=== PATIENT | male | born 1960 | race Caucasian/White ===

== ENCOUNTER 2019-03-20 01:27 | Inpatient (IN) | payer BC ==
[2019-03-20] MEDS ORDERED: Lactated Ringers 1,000 ML IV SCH ×2 (02:00→03:45)
[2019-03-20] MEDS ORDERED: Ibuprofen 600 MG Tab PO ONE (02:02)
[2019-03-20] MEDS ORDERED: Sodium Chloride 0.9% 10 ML Syringe FLUSH PRN ×2 (02:06→02:11)
[2019-03-20] MEDS ORDERED: Piperacillin/Tazobactam 4.5 GM in Sodium Chloride 0.9% 100 ML IV ONE (02:07)
--- NOTE | 2019-03-20 02:11 | EDM.PDOC ---
ED HPI GENERAL MEDICAL PROBLEM - General Chief Complaint: Fever Stated Complaint: HIGH FEVER/CONFUSION Time Seen by Provider: 03/20/19 01:54 Source of Information: Reports: Patient, Family, RN Notes Reviewed History Limitations: Reports: Altered Mental Status - History of Present Illness INITIAL COMMENTS - FREE TEXT/NARRATIVE: 59-year-old gentleman presents emergency department today complaint of fever and confusion. Gentleman is from [place] he's been here visiting over the last 24 hours she's become more confused has had difficulty with ambulation and balance has developed a fever which does respond to Tylenol. Does have a history of pituitary tumor as well as diabetes insipidus. At this time complains of headache and has difficulty finding words appears to be confused but does follow commands Treatments FINAL CIGAR AND BOX EXAMINER: Reports: Acetaminophen, Other (see below) Other Treatments FINAL CIGAR AND BOX EXAMINER: 8pm tylenol headache Pain Score (Numeric/FACES): 8 - Related Data Allergies Allergy/AdvReac Type Severity Reaction Status Date / Time No Known Allergies Allergy Verified 03/20/19 01:47 Home Meds: Home Meds Desmopressin [Desmopressin 0.1% Nasal [place]] 500 mcg INH DAILY 03/20/19 [History ] Docusate Sodium 100 mg PO DAILY 03/20/19 [History] Finasteride [Proscar] 5 mg PO DAILY 03/20/19 [History] Hydrocortisone [Cortef] 5 mg PO PCDINNER 03/20/19 [History] Hydrocortisone [Cortef] 12.5 mg PO PCBREAKFAST 03/20/19 [History] Levothyroxine 112 mcg PO ACBREAKFAST 03/20/19 [History] Melatonin/Herbal Complex #184 [Melatonin + l-Theanine Softgel] 3 mg PO BEDTIME 03/20/19 [History] Nebivolol HCl [Bystolic] 2.5 mg PO DAILY 03/20/19 [History] Ramipril [Altace] 10 mg PO DAILY 03/20/19 [History] Rosuvastatin [Crestor] 20 mg PO BEDTIME 03/20/19 [History] Tamsulosin HCl [Flomax] 0.4 mg PO BEDTIME 03/20/19 [History] Testosterone 75 gm TOP DAILY 03/20/19 [History] Zolpidem Tartrate [Ambien] 5 mg PO BEDTIME 03/20/19 [History] Past Medical History Endocrine/Metabolic History: Reports: Other (See Below) (Diabetes insipidus) Social & Family History - Tobacco Use Smoking Status *Q: Never Smoker ED ROS GENERAL - Review of Systems Review Of Systems: See Below Constitutional: Reports: Fever, Chills, Weakness, Fatigue, Other (Cold-like symptoms) HEENT: Reports: No Symptoms Respiratory: Reports: No Symptoms, Cough Cardiovascular: Reports: No Symptoms GI/Abdominal: Reports: No Symptoms : Reports: No Symptoms Musculoskeletal: Reports: No Symptoms Skin: Reports: No Symptoms Neurological: Reports: Confusion ED EXAM, SEPSIS - Physical Exam Exam: See Below Text/Narrative:: General: Male, ill-appearing, alert GCS 15 but confused difficulty finding words difficulty completing sentences HEENT: head is atraumatic normocephalic, eyes pupils equal round reactive to light, sclera clear no conjunctivitis appreciated. Ears tympanic membranes clear and eduardo landmarks and light reflex are present bilaterally canals are clear. Nose no septal deviation, nares are clear, no blood present. Mouth mucosa is moist and pink no erythema or exudate noted in soft palate, tongue is midline uvula is midline, dentition is intact. Neck: Supple no thyromegaly no tracheal deviation. Nodes: Cervical nodes subclavicular nodes nontender no palpable lymphadenopathy noted. Lungs: clear to auscultation bilaterally with symmetrical respirations, no adventitious noise appreciated. CV: Regular rate and rhythm S1 and S2 appreciated no murmurs rubs or gallops noted. Abdomen: Soft, nontender, no palpable masses or organomegaly appreciated, no distention no guarding bowel sounds are present, . Neuro: Cranial nerves II through XII grossly intact Skin: Warm and dry, intact Extremities: No lower extremity edema appreciated, pedal pulse is +2. He places his chin on his chest this does not increase his headache pain Course - Vital Signs Last Recorded V/S: Last Vital Signs Temp 99.5 F 03/20/19 04:51 Pulse 87 03/20/19 04:51 Resp 20 03/20/19 04:51 BP 124/77 03/20/19 04:51 Pulse Ox 91 L 03/20/19 04:51 - Orders/Labs/Meds Orders: Active Orders 24 hr Category Date Time Status Peripheral IV Care [RC] . DIRECTED Care 03/20/19 02:06 Active Peripheral IV Care [RC] . DIRECTED Care 03/20/19 02:12 Active Vital Signs [RC] Q1H Care 03/20/19 02:00 Active CULTURE BLOOD [BC] Urgent Lab 03/20/19 01:45 Received CULTURE BLOOD [BC] Urgent Lab 03/20/19 02:00 Received Lactated Ringers [Ringers, Lactated] 1,000 ml Med 03/20/19 02:00 Active IV ASDIRECTED Lactated Ringers [Ringers, Lactated] 1,000 ml Med 03/20/19 03:45 Active IV ASDIRECTED Sodium Chloride 0.9% [Saline Flush] Med 03/20/19 02:06 Active 10 ml FLUSH ASDIRECTED PRN Sodium Chloride 0.9% [Saline Flush] Med 03/20/19 02:11 Active 10 ml FLUSH ASDIRECTED PRN Blood Culture x2 Reflex Set [OM.PC] Urgent Oth 03/20/19 02:00 Ordered Peripheral IV Insertion Adult [OM.PC] Routine Oth 03/20/19 02:11 Ordered Peripheral IV Insertion Adult [OM.PC] Urgent Oth 03/20/19 02:06 Ordered Medication Orders Lactated Ringer's (Ringers, Lactated) 1,000 mls @ 999 mls/hr IV ASDIRECTED [facility] Last Admin: 03/20/19 02:13 Dose: 999 mls/hr Lactated Ringer's (Ringers, Lactated) 1,000 mls @ 999 mls/hr IV ASDIRECTED SUNDAR Last Admin: 03/20/19 03:42 Dose: 999 mls/hr Sodium Chloride (Saline Flush) 10 ml FLUSH ASDIRECTED PRN PRN Reason: Keep Vein Open Last Admin: 03/20/19 02:14 Dose: 10 ml Sodium Chloride (Saline Flush) 10 ml FLUSH ASDIRECTED PRN PRN Reason: Keep Vein Open Last Admin: 03/20/19 02:35 Dose: 10 ml Labs: Laboratory Tests 03/20/19 03/20/19 03/20/19 Range/Units 02:00 02:00 02:00 WBC 4.8 (4.5-11.0) K/uL RBC 5.60 (4.30-5.90) M/uL Hgb 15.5 H (12.0-15.0) g/dL Hct 46.3 (40.0-54.0) % MCV 83 (80-98) fL MCH 28 (27-31) pg MCHC 34 (32-36) % Plt Count 112 L (150-400) K/uL Neut % (Auto) 46 (36-66) % Lymph % (Auto) 32 (24-44) % [place] % (Auto) 21 H (2-6) % Eos % (Auto) 0 L (2-4) % Baso % (Auto) 1 (0-1) % Sodium 134 L (140-148) mmol/L Potassium 4.4 (3.6-5.2) mmol/L Chloride 98 L (100-108) mmol/L Carbon Dioxide 25 (21-32) mmol/L Anion Gap 15.4 H (5.0-14.0) mmol/L BUN 21 H (7-18) mg/dL Creatinine 1.8 H (0.8-1.3) mg/dL Est Cr Clr Drug Dosing 40.29 mL/min Estimated GFR (MDRD) 39 L (>60) Glucose 94 (74-106) mg/dL Lactic Acid 1.4 (0.4-2.0) mmol/L Calcium 9.2 (8.5-10.1) mg/dL Total Bilirubin 0.9 (0.2-1.0) mg/dL AST 37 (15-37) U/L ALT 50 (12-78) U/L Alkaline Phosphatase 53 (46-116) U/L C-Reactive Protein 9.46 H (0.0-0.3) mg/dL Total Protein 6.8 (6.4-8.2) g/dL Albumin 3.9 (3.4-5.0) g/dL Globulin 2.9 (2.3-3.5) g/dL Albumin/Globulin Ratio 1.3 (1.2-2.2) Procalcitonin ng/mL Urine Color Urine Appearance Urine pH (4.5-8.0) Ur Specific [place] (1.008-1.030) Urine Protein (NEGATIVE) mg/dL Urine Glucose (UA) (NEGATIVE) mg/dL Urine Ketones (NEGATIVE) mg/dL Urine Occult Blood (NEGATIVE) Urine Nitrite (NEGAITVE) Urine Bilirubin (NEGATIVE) Urine Urobilinogen (NORMAL) mg/dL Ur Leukocyte Esterase (NEGATIVE) Urine RBC (0-5) Urine WBC (0-5) Ur Epithelial Cells Amorphous Sediment Urine Bacteria Urine Mucus 03/20/19 03/20/19 Range/Units 02:00 04:05 WBC (4.5-11.0) K/uL RBC (4.30-5.90) M/uL Hgb (12.0-15.0) g/dL Hct (40.0-54.0) % MCV (80-98) fL MCH (27-31) pg MCHC (32-36) % Plt Count (150-400) K/uL Neut % (Auto) (36-66) % Lymph % (Auto) (24-44) % [place] % (Auto) (2-6) % Eos % (Auto) (2-4) % Baso % (Auto) (0-1) % Sodium (140-148) mmol/L Potassium (3.6-5.2) mmol/L Chloride (100-108) mmol/L Carbon Dioxide (21-32) mmol/L Anion Gap (5.0-14.0) mmol/L BUN (7-18) mg/dL Creatinine (0.8-1.3) mg/dL Est Cr Clr Drug Dosing mL/min Estimated GFR (MDRD) (>60) Glucose (74-106) mg/dL Lactic Acid (0.4-2.0) mmol/L Calcium (8.5-10.1) mg/dL Total Bilirubin (0.2-1.0) mg/dL AST (15-37) U/L ALT (12-78) U/L Alkaline Phosphatase (46-116) U/L C-Reactive Protein (0.0-0.3) mg/dL Total Protein (6.4-8.2) g/dL Albumin (3.4-5.0) g/dL Globulin (2.3-3.5) g/dL Albumin/Globulin Ratio (1.2-2.2) Procalcitonin 0.18 ng/mL Urine Color Yellow Urine Appearance Clear Urine pH 5.0 (4.5-8.0) Ur Specific [place] 1.010 (1.008-1.030) Urine Protein Negative (NEGATIVE) mg/dL Urine Glucose (UA) Normal (NEGATIVE) mg/dL Urine Ketones Negative (NEGATIVE) mg/dL Urine Occult Blood Negative (NEGATIVE) Urine Nitrite Negative (NEGAITVE) Urine Bilirubin Negative (NEGATIVE) Urine Urobilinogen Normal (NORMAL) mg/dL Ur Leukocyte Esterase Negative (NEGATIVE) Urine RBC 0-5 (0-5) Urine WBC 0-5 (0-5) Ur Epithelial Cells Not seen Amorphous Sediment Few Urine Bacteria Not seen Urine Mucus Not seen Meds: Medications Generic Name Dose Route Start Last Admin Trade Name Freq PRN Reason Stop Dose Admin Lactated Ringer's 1,000 mls @ 999 mls/hr 03/20/19 02:00 03/20/19 02:13 Ringers, Lactated IV 999 mls/hr ASDIRECTED SUNDAR Administration Lactated Ringer's 1,000 mls @ 999 mls/hr 03/20/19 03:45 03/20/19 03:42 Ringers, Lactated IV 999 mls/hr ASDIRECTED SUNDAR Administration Sodium Chloride 10 ml 03/20/19 02:06 03/20/19 02:14 Saline Flush FLUSH 10 ml ASDIRECTED PRN Administration Keep Vein Open Sodium Chloride 10 ml 03/20/19 02:11 03/20/19 02:35 Saline Flush FLUSH 10 ml ASDIRECTED PRN Administration Keep Vein Open Discontinued Medications Generic Name Dose Route Start Last Admin Trade Name Freq PRN Reason Stop Dose Admin Fentanyl 50 mcg 03/20/19 04:49 03/20/19 04:57 Sublimaze IVPUSH 03/20/19 04:50 50 mcg ONETIME ONE Administration Piperacillin Sod/Tazobactam 100 mls @ 200 mls/hr 03/20/19 02:00 03/20/19 03: 14 Sod 4.5 gm/ Sodium Chloride IV Not Given Q6H SUNDAR Piperacillin Sod/Tazobactam 100 mls @ 100 mls/hr 03/20/19 02:07 03/20/19 02: 40 Sod 4.5 gm/ Sodium Chloride IV 03/20/19 03:06 100 mls/hr ONETIME ONE Administration Ibuprofen 600 mg 03/20/19 02:02 03/20/19 02:08 Motrin PO 03/20/19 02:03 600 mg ONETIME ONE Administration Ondansetron HCl 4 mg 03/20/19 02:28 03/20/19 02:33 Zofran IVPUSH 03/20/19 02:29 4 mg ONETIME ONE Administration Departure - Departure Time of Disposition: 05:28 Disposition: Refer to Observation Condition: Fair Clinical Impression: Community acquired pneumonia Qualifiers: Laterality: left Lung location: lower lobe of lung Qualified Code(s): J18.1 - Lobar pneumonia, unspecified organism - Discharge Information Referrals: PCP,None [Primary Care Provider] - Forms: ED Department Discharge - My Orders Last 24 Hours: My Active Orders 03/20/19 01:45 CULTURE BLOOD [BC] Urgent 03/20/19 02:00 Vital Signs [RC] Q1H CULTURE BLOOD [BC] Urgent Lactated Ringers [Ringers, Lactated] 1,000 ml IV ASDIRECTED Blood Culture x2 Reflex Set [OM.PC] Urgent 03/20/19 02:06 Peripheral IV Care [RC] . DIRECTED Sodium Chloride 0.9% [Saline Flush] 10 ml FLUSH ASDIRECTED PRN Peripheral IV Insertion Adult [OM.PC] Urgent 03/20/19 02:11 Sodium Chloride 0.9% [Saline Flush] 10 ml FLUSH ASDIRECTED PRN Peripheral IV Insertion Adult [OM.PC] Routine 03/20/19 02:12 Peripheral IV Care [RC] . DIRECTED 03/20/19 03:45 Lactated Ringers [Ringers, Lactated] 1,000 ml IV ASDIRECTED - Assessment/Plan Last 24 Hours: My Active Orders 03/20/19 01:45 CULTURE BLOOD [BC] Urgent 03/20/19 02:00 Vital Signs [RC] Q1H CULTURE BLOOD [BC] Urgent Lactated Ringers [Ringers, Lactated] 1,000 ml IV ASDIRECTED Blood Culture x2 Reflex Set [OM.PC] Urgent 03/20/19 02:06 Peripheral IV Care [RC] . DIRECTED Sodium Chloride 0.9% [Saline Flush] 10 ml FLUSH ASDIRECTED PRN Peripheral IV Insertion Adult [OM.PC] Urgent 03/20/19 02:11 Sodium Chloride 0.9% [Saline Flush] 10 ml FLUSH ASDIRECTED PRN Peripheral IV Insertion Adult [OM.PC] Routine 03/20/19 02:12 Peripheral IV Care [RC] . DIRECTED 03/20/19 03:45 Lactated Ringers [Ringers, Lactated] 1,000 ml IV ASDIRECTED Plan: Assessment Acuity = acute Site and laterality = me acquired pneumonia Etiology = probable bacterial cause Manifestations = alert fever, cough Location of injury = Home Lab values = CBC unremarkable CMP reveals creatinine elevated 1.8 consistent with acute renal failure stage G IIIB CRP elevated at 9.46 lactic acid normal 1.4 urinalysis unremarkable, chest x-ray shows left lung atelectasis versus filtrate, CT scan of head also unremarkable, blood cultures are pending Plan Called discussed case with hospitalist on-call at [phone] kindly agreed to come and evaluate patient emergency department for admission thus far he has received 2 L of lactated Ringer's and Zosyn 4.5 mg dose 1 This note was dictated using bookletmobile voice recognition software please call with any questions on syntax or grammar.
[2019-03-20] MEDS ORDERED: Ondansetron 4 MG/2 ML SDV IVPUSH ONE (02:28)
[2019-03-20] MEDS: Piperacillin/Tazobactam 4.5 GM in Sodium Chloride 0.9% 100 ML IV SCH ×2 (03:14)
--- NOTE | 2019-03-20 03:59 | CRLCR ---
INDICATION: Fever TECHNIQUE: Chest 2 views. COMPARISON: None FINDINGS: Normal cardiomediastinal silhouette. Lung volumes are low which accentuates the vascular markings. Minimal atelectasis versus infiltrate at the left lung base and lingula. No pneumothorax or effusion. No acute osseous abnormality. IMPRESSION: Atelectasis versus infiltrate at the left lung base and lingula. Dictated by Lorena Jurado MD @ Mar 20 2019 3:57AM Signed by Dr. Lorena Jurado @ Mar 20 2019 3:57AM
--- NOTE | 2019-03-20 04:01 | CRLCT ---
INDICATION: Fever, confusion TECHNIQUE: Head CT without contrast. COMPARISON: None FINDINGS: CSF spaces: Within normal limits for age. Brain parenchyma: There are nonspecific low attenuation white matter changes consistent with chronic microvascular disease. No sign of mass, hemorrhage, or midline shift. Skull base and calvarium: Thickening of the ethmoid and sphenoid sinus mucosa. Mastoid air cells are clear. The visualized orbits are grossly unremarkable. No skull fractures. There is intracranial atherosclerosis. IMPRESSION: 1. No acute findings. 2. Nonspecific white matter disease, typical of chronic microvascular disease. Please note that all CT scans at this facility use dose modulation, iterative reconstruction, and/or weight-based dosing when appropriate to reduce radiation dose to as low as reasonably achievable. Dictated by Lorena Jurado MD @ Mar 20 2019 3:59AM Signed by Dr. Lorena Jurado @ Mar 20 2019 3:59AM
[2019-03-20] MEDS ORDERED: fentaNYL 100 MCG/2 ML SDV IVPUSH ONE (04:49)
[2019-03-20] MEDS ORDERED: Sodium Chloride 0.9% 1,000 ML IV SCH (05:30)
--- NOTE | 2019-03-20 06:22 | PCM.HP ---
H&P History of Present Illness - General Date of Service: 03/20/19 Admit Problem/Dx: Admission Diagnosis/Problem Admission Diagnosis/Problem Pneumonia Source of Information: Patient, Family ( Zeb) History Limitations: Reports: No Limitations - History of Present Illness Initial Comments - Free Text/Narative: chief complaint: fever and weakness This is a 59 year old male present to ER with his with concerns of fever , chills, weakness for 2.5 days, acute confusion occurred during the night. reports they live in [facility], flew to [place] on Monday, then flew to [place] on Monday, and drove up north to visit friends. Onset of Symptoms: Reports: Gradual Symptom Onset Date: 03/17/19 Duration of Symptoms: Reports: Day(s):, Getting Worse Location: Reports: Generalized Quality: Reports: Other (weakness, confusion, sweats) Severity: Severe Improves with: Reports: None Worsens with: Reports: None Context: Reports: Travel (has been in [facility] and [place] since Monday. ) Associated Symptoms: Reports: Confusion, Cough, Fever/Chills, Loss of Appetite, Nausea/Vomiting, Weakness headache Pain Score (Numeric/FACES): 8 - Related Data Allergies/Adverse Reactions: Allergies Allergy/AdvReac Type Severity Reaction Status Date / Time No Known Allergies Allergy Verified 03/20/19 01:47 Home Medications: Home Meds Desmopressin [Desmopressin 0.1% Nasal [place]] 500 mcg INH DAILY 03/20/19 [History ] Docusate Sodium 100 mg PO DAILY 03/20/19 [History] Finasteride [Proscar] 5 mg PO DAILY 03/20/19 [History] Hydrocortisone [Cortef] 5 mg PO PCDINNER 03/20/19 [History] Hydrocortisone [Cortef] 12.5 mg PO PCBREAKFAST 03/20/19 [History] Levothyroxine 112 mcg PO ACBREAKFAST 03/20/19 [History] Melatonin/Herbal Complex #184 [Melatonin + l-Theanine Softgel] 3 mg PO BEDTIME 03/20/19 [History] Nebivolol HCl [Bystolic] 2.5 mg PO DAILY 03/20/19 [History] Ramipril [Altace] 10 mg PO DAILY 03/20/19 [History] Rosuvastatin [Crestor] 20 mg PO BEDTIME 03/20/19 [History] Tamsulosin HCl [Flomax] 0.4 mg PO BEDTIME 03/20/19 [History] Testosterone 75 gm TOP DAILY 03/20/19 [History] Zolpidem Tartrate [Ambien] 5 mg PO BEDTIME 03/20/19 [History] Past Medical History Cardiovascular History: Reports: High Cholesterol, Hypertension, Other (See Below) Other Cardiovascular History: 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 thyroid disorder Oncologic (Cancer) History: Reports: Other (See Below) Other Oncologic History: tumor on pituitary gland - Past Surgical History GI Surgical History: Reports: Appendectomy, Colonoscopy, Polypectomy Endocrine Surgical History: Reports: Pituitary Tumor Resection, Other (See Below ) Other Endocrine Surgeries/Procedures: x3 pituitary gland surgery for tumor removal Social & Family History - Tobacco Use Smoking Status *Q: Never Smoker - Caffeine Use Caffeine Use: Reports: None - Recreational Drug Use Recreational Drug Use: No - Living Situation & Occupation Living situation: Reports: 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[employer], lives in [facility] with his .) H&P Review of Systems - Review of Systems: Review Of Systems: See Below General: Reports: Fever, Chills, Weakness, Fatigue, Night Sweats, Decreased Appetite HEENT: Reports: Glasses Pulmonary: Reports: Cough Cardiovascular: Reports: No Symptoms Gastrointestinal: Reports: Diarrhea Genitourinary: Reports: No Symptoms Musculoskeletal: Reports: Other (muscle weakness) Skin: Reports: No Symptoms Psychiatric: Reports: Confusion (resolved with IV fluids) Neurological: Reports: Confusion (resolves with IV fluids), Weakness, Other (hx of Pituitary tumor resection x3) Hematologic/Lymphatic: Reports: No Symptoms Immunologic: Reports: No Symptoms Exam - Exam Exam: See Below - Vital Signs Vital Signs: Last Vital Signs Temp 36.1 C 03/20/19 05:50 Pulse 71 03/20/19 05:59 Resp 17 03/20/19 05:59 BP 99/52 L 03/20/19 05:59 Pulse Ox 94 L 03/20/19 05:59 Weight: 95.254 kg - Exam Quality Assessment: Supplemental Oxygen General: Alert, Oriented, Cooperative, Mild Distress HEENT: PERRLA, Conjunctiva Clear, EACs Clear, EOMI, Hearing Intact, Mucosa Moist & [place], Nares Patent, Normal Nasal Septum, Posterior Pharynx Clear, TMs Clear, Other Neck: Supple, Trachea Midline Lungs: Clear to Auscultation, Decreased Breath Sounds (bilateral at bases) Cardiovascular: Regular Rate, Regular Rhythm, Normal S1, Normal S2 GI/Abdominal Exam: Normal Bowel Sounds, Soft, Non-Tender, No Organomegaly, No Distention, No Abnormal Bruit, No Mass (Male) Exam: Deferred Rectal (Males) Exam: Deferred Back Exam: Normal Inspection, Full Range of Motion Extremities: Normal Inspection, Normal Range of Motion, Non-Tender, No Pedal Edema, Normal Capillary Refill Peripheral Pulses: 2+: Radial (L), Radial (R), Dorsalis Pedis (L), Dorsalis Pedis (R) Skin: Warm, Intact, Other (sweating, hospital gown is damp) Neurological: Strength Equal Bilateral, Normal Gait, Normal Speech, Normal Tone Neuro Extensive - Mental Status: Alert, Oriented x3, Normal Mood/Affect, Normal Cognition, Memory Intact Psychiatric: Normal Affect, Normal Mood - Patient Data Lab Results Last 24 hrs: Laboratory Results - last 24 hr 03/20/19 03/20/19 03/20/19 Range/Units 02:00 02:00 02:00 WBC 4.8 (4.5-11.0) K/uL RBC 5.60 (4.30-5.90) M/uL Hgb 15.5 H (12.0-15.0) g/dL Hct 46.3 (40.0-54.0) % MCV 83 (80-98) fL MCH 28 (27-31) pg MCHC 34 (32-36) % Plt Count 112 L (150-400) K/uL Neut % (Auto) 46 (36-66) % Lymph % (Auto) 32 (24-44) % [place] % (Auto) 21 H (2-6) % Eos % (Auto) 0 L (2-4) % Baso % (Auto) 1 (0-1) % Sodium 134 L (140-148) mmol/L Potassium 4.4 (3.6-5.2) mmol/L Chloride 98 L (100-108) mmol/L Carbon Dioxide 25 (21-32) mmol/L Anion Gap 15.4 H (5.0-14.0) mmol/L BUN 21 H (7-18) mg/dL Creatinine 1.8 H (0.8-1.3) mg/dL Est Cr Clr Drug Dosing 40.29 mL/min Estimated GFR (MDRD) 39 L (>60) Glucose 94 (74-106) mg/dL Lactic Acid 1.4 (0.4-2.0) mmol/L Calcium 9.2 (8.5-10.1) mg/dL Total Bilirubin 0.9 (0.2-1.0) mg/dL AST 37 (15-37) U/L ALT 50 (12-78) U/L Alkaline Phosphatase 53 (46-116) U/L C-Reactive Protein 9.46 H (0.0-0.3) mg/dL Total Protein 6.8 (6.4-8.2) g/dL Albumin 3.9 (3.4-5.0) g/dL Globulin 2.9 (2.3-3.5) g/dL Albumin/Globulin Ratio 1.3 (1.2-2.2) Procalcitonin ng/mL Urine Color Urine Appearance Urine pH (4.5-8.0) Ur Specific [place] (1.008-1.030) Urine Protein (NEGATIVE) mg/dL Urine Glucose (UA) (NEGATIVE) mg/dL Urine Ketones (NEGATIVE) mg/dL Urine Occult Blood (NEGATIVE) Urine Nitrite (NEGAITVE) Urine Bilirubin (NEGATIVE) Urine Urobilinogen (NORMAL) mg/dL Ur Leukocyte Esterase (NEGATIVE) Urine RBC (0-5) Urine WBC (0-5) Ur Epithelial Cells Amorphous Sediment Urine Bacteria Urine Mucus 03/20/19 03/20/19 Range/Units 02:00 04:05 WBC (4.5-11.0) K/uL RBC (4.30-5.90) M/uL Hgb (12.0-15.0) g/dL Hct (40.0-54.0) % MCV (80-98) fL MCH (27-31) pg MCHC (32-36) % Plt Count (150-400) K/uL Neut % (Auto) (36-66) % Lymph % (Auto) (24-44) % [place] % (Auto) (2-6) % Eos % (Auto) (2-4) % Baso % (Auto) (0-1) % Sodium (140-148) mmol/L Potassium (3.6-5.2) mmol/L Chloride (100-108) mmol/L Carbon Dioxide (21-32) mmol/L Anion Gap (5.0-14.0) mmol/L BUN (7-18) mg/dL Creatinine (0.8-1.3) mg/dL Est Cr Clr Drug Dosing mL/min Estimated GFR (MDRD) (>60) Glucose (74-106) mg/dL Lactic Acid (0.4-2.0) mmol/L Calcium (8.5-10.1) mg/dL Total Bilirubin (0.2-1.0) mg/dL AST (15-37) U/L ALT (12-78) U/L Alkaline Phosphatase (46-116) U/L C-Reactive Protein (0.0-0.3) mg/dL Total Protein (6.4-8.2) g/dL Albumin (3.4-5.0) g/dL Globulin (2.3-3.5) g/dL Albumin/Globulin Ratio (1.2-2.2) Procalcitonin 0.18 ng/mL Urine Color Yellow Urine Appearance Clear Urine pH 5.0 (4.5-8.0) Ur Specific [place] 1.010 (1.008-1.030) Urine Protein Negative (NEGATIVE) mg/dL Urine Glucose (UA) Normal (NEGATIVE) mg/dL Urine Ketones Negative (NEGATIVE) mg/dL Urine Occult Blood Negative (NEGATIVE) Urine Nitrite Negative (NEGAITVE) Urine Bilirubin Negative (NEGATIVE) Urine Urobilinogen Normal (NORMAL) mg/dL Ur Leukocyte Esterase Negative (NEGATIVE) Urine RBC 0-5 (0-5) Urine WBC 0-5 (0-5) Ur Epithelial Cells Not seen Amorphous Sediment Few Urine Bacteria Not seen Urine Mucus Not seen Result Diagrams: 03/20/19 02:00 03/20/19 02:00 - Problem List (1) Community acquired pneumonia SNOMED Code(s): 808129175 ICD Code: J18.9 - PNEUMONIA, UNSPECIFIED ORGANISM Status: Acute Priority : High Current Visit: Yes Qualifiers: Laterality: left Lung location: lower lobe of lung Qualified Code(s): J18.1 - Lobar pneumonia, unspecified organism (2) History of pituitary tumor SNOMED Code(s): 48608625724668, 30356605184404 ICD Code: Z87.898 - PERSONAL HISTORY OF OTHER SPECIFIED CONDITIONS Status: Acute Priority: Medium Current Visit: Yes (3) Diabetes insipidus SNOMED Code(s): 68933073 ICD Code: E23.2 - DIABETES INSIPIDUS Status: Acute Priority: Medium Current Visit: Yes Problem List Initiated/Reviewed/Updated: Yes Orders Last 24hrs: Active Orders 24 hr Category Date Time Status Patient Status Manage Transfer [TRANSFER] Routine ADT 03/20/19 05:48 Ordered Peripheral IV Care [RC] . DIRECTED Care 03/20/19 02:06 Active Peripheral IV Care [RC] . DIRECTED Care 03/20/19 02:12 Active Vital Signs [RC] Q1H Care 03/20/19 02:00 Active CULTURE BLOOD [BC] Urgent Lab 03/20/19 01:45 Received CULTURE BLOOD [BC] Urgent Lab 03/20/19 02:00 Received Lactated Ringers [Ringers, Lactated] 1,000 ml Med 03/20/19 02:00 Active IV ASDIRECTED Lactated Ringers [Ringers, Lactated] 1,000 ml Med 03/20/19 03:45 Active IV ASDIRECTED Sodium Chloride 0.9% [Normal Saline] 1,000 ml Med 03/20/19 05:30 Active IV ASDIRECTED Sodium Chloride 0.9% [Saline Flush] Med 03/20/19 02:06 Active 10 ml FLUSH ASDIRECTED PRN Sodium Chloride 0.9% [Saline Flush] Med 03/20/19 02:11 Active 10 ml FLUSH ASDIRECTED PRN Blood Culture x2 Reflex Set [OM.PC] Urgent Oth 03/20/19 02:00 Ordered Peripheral IV Insertion Adult [OM.PC] Routine Oth 03/20/19 02:11 Ordered Peripheral IV Insertion Adult [OM.PC] Urgent Oth 03/20/19 02:06 Ordered Resuscitation Status Routine Resus Stat 03/20/19 06:01 Ordered Medication Orders Lactated Ringer's (Ringers, Lactated) 1,000 mls @ 999 mls/hr IV ASDIRECTED SUNDAR Last Admin: 03/20/19 02:13 Dose: 999 mls/hr Lactated Ringer's (Ringers, Lactated) 1,000 mls @ 999 mls/hr IV ASDIRECTED SUNDAR Last Admin: 03/20/19 03:42 Dose: 999 mls/hr Sodium Chloride (Normal Saline) 1,000 mls @ 200 mls/hr IV ASDIRECTED SUNDAR Sodium Chloride (Saline Flush) 10 ml FLUSH ASDIRECTED PRN PRN Reason: Keep Vein Open Last Admin: 03/20/19 02:14 Dose: 10 ml Sodium Chloride (Saline Flush) 10 ml FLUSH ASDIRECTED PRN PRN Reason: Keep Vein Open Last Admin: 03/20/19 02:35 Dose: 10 ml Assessment/Plan Comment:: Assessment/Plan Comment:: ASSESSMENT AND PLAN OF CARE Mr. Samuels reports being sick for the past two and half days, but became suddenly worse this evening with shaking chills, fever, confusion and weakness. s. He has been nausea without vomiting, diarrhea started in the ER prior had been constipated. ER workup shows elevated WBC 4.8, hgb 15.5, hct 46.3, plt 112, Chemistry normal range, Cr 1.8, glucose 94, CRP 9.46. blood cultures pending. Xray chest has left lower lobe infiltrate. Medication given IV Zosyn 4.5 gm in ER. Hospitalize for further care and treatment. Mr. Samuels and his Zeb agree with plan of care. They also report they are here on vacation and need to be discharge if at all possible by noon tomorrow. They had a flight home this week. Pneumonia -Admit to [address] [place] [address] for further monitoring -IV Fluids for rehydration NS at 200 mL per hour then reduce to 125ml/hr, received 2 liters of fluid in ER -IV Antibiotic; Zoysn 4.5 gm IV every 6 hours -oxygen to keep sats greater than 95% -Duo nebs every 6 hours prn, Albuterol nebs every 4 hours prn -Advise to notify nurses of any chest pain or other symptoms -blood cultures x2 pending Hx of Pituatary Tumor, with resection x 3, Diabetes Insipidus -continue home medications -has Desmopressin nasal spray 1 spray bid, patient has his own, must be kept in refrigerated -blood glucose check Maintenance issues -Orders home meds: chronic medication -Nutrition: regular diet -Espinoza catheter -not indicated at this time -DVT: Lovenox 40 subcut daily -PPI; PO Protonix 40mg daily CODE STATUS: FULL Admission status: Admit to [address] [place] [address] Admission justification. This patient will be admitted for inpatient services and is medically appropriate meeting medical necessity for inpatient admission as outlined in my documentation. I reasonably expect the patient will require inpatient services that span. Time over 2 midnights. I reasonably expect this patient to be discharged or transferred within 96 hours after admission to the [facility]. Disposition: home with Family Primary care provider: Bud Hospitalist: Dr. Sanchez
[2019-03-20] MEDS ORDERED: Morphine 2 MG/ML Syringe IVPUSH PRN (07:13)
[2019-03-20] MEDS ORDERED: LORazepam 2 MG/ML SDV IV PRN (07:13)
[2019-03-20] MEDS ORDERED: oxyCODONE 5 MG Tab PO PRN (07:13)
[2019-03-20] MEDS ORDERED: Albuterol/Ipratropium 3.0-0.5 MG/3 ML Neb Soln NEB PRN (07:13)
[2019-03-20] MEDS ORDERED: Albuterol 0.083% 2.5 MG/3 ML Neb Soln NEB PRN (07:13)
[2019-03-20] MEDS ORDERED: Sodium Chloride 0.9% 500 ML IV SCH (08:00)
[2019-03-20] MEDS: Acetaminophen 325 MG Tab PO PRN ×2 (08:05→14:13)
[2019-03-20] MEDS: Sodium Chloride 0.9% 1,000 ML IV SCH ×2 (08:06→18:23)
[2019-03-20] MEDS: Finasteride 5 MG Tab PO SCH (09:35)
[2019-03-20] MEDS: Levothyroxine 112 MCG Tab PO SCH (09:35)
[2019-03-20] MEDS: Pantoprazole 40 MG Tab.CR PO SCH (09:36)
[2019-03-20] MEDS: Enoxaparin 40 MG/0.4 ML Syringe SUBCUT SCH (09:36)
[2019-03-20] MEDS: Piperacillin/Tazobactam/Dext 4.5 GM in Premix Bag 1 BAG IV SCH ×3 (09:36→21:22)
[2019-03-20] MEDS: DESMOPRESSIN NAS SCH ×2 (09:37→21:21)
--- NOTE | 2019-03-20 10:00 | PCM.PN ---
- General Info Date of Service: 03/20/19 Subjective Update: There were no acute events since admission. Temperature curve has been normal. Patient continues to have a headache and feels tired. He is on supplemental oxygen. He has had several episodes of watery diarrhea. No complaints of abdominal pain. Functional Status: Reports: Pain Controlled - Review of Systems General: Reports: Fever, Weakness - Patient Data Vitals - Most Recent: Last Vital Signs Temp 37.3 C 03/20/19 07:14 Pulse 72 03/20/19 07:14 Resp 15 03/20/19 07:14 BP 90/41 L 03/20/19 07:14 Pulse Ox 93 L 03/20/19 09:43 Weight - Most Recent: 95.254 kg Lab Results Last 24 Hours: Laboratory Results - last 24 hr 03/20/19 03/20/19 03/20/19 Range/Units 02:00 02:00 02:00 WBC 4.8 (4.5-11.0) K/uL RBC 5.60 (4.30-5.90) M/uL Hgb 15.5 H (12.0-15.0) g/dL Hct 46.3 (40.0-54.0) % MCV 83 (80-98) fL MCH 28 (27-31) pg MCHC 34 (32-36) % Plt Count 112 L (150-400) K/uL Neut % (Auto) 46 (36-66) % Lymph % (Auto) 32 (24-44) % [place] % (Auto) 21 H (2-6) % Eos % (Auto) 0 L (2-4) % Baso % (Auto) 1 (0-1) % Sodium 134 L (140-148) mmol/L Potassium 4.4 (3.6-5.2) mmol/L Chloride 98 L (100-108) mmol/L Carbon Dioxide 25 (21-32) mmol/L Anion Gap 15.4 H (5.0-14.0) mmol/L BUN 21 H (7-18) mg/dL Creatinine 1.8 H (0.8-1.3) mg/dL Est Cr Clr Drug Dosing 40.29 mL/min Estimated GFR (MDRD) 39 L (>60) Glucose 94 (74-106) mg/dL Lactic Acid 1.4 (0.4-2.0) mmol/L Calcium 9.2 (8.5-10.1) mg/dL Total Bilirubin 0.9 (0.2-1.0) mg/dL AST 37 (15-37) U/L ALT 50 (12-78) U/L Alkaline Phosphatase 53 (46-116) U/L C-Reactive Protein 9.46 H (0.0-0.3) mg/dL Total Protein 6.8 (6.4-8.2) g/dL Albumin 3.9 (3.4-5.0) g/dL Globulin 2.9 (2.3-3.5) g/dL Albumin/Globulin Ratio 1.3 (1.2-2.2) Procalcitonin ng/mL Urine Color Urine Appearance Urine pH (4.5-8.0) Ur Specific [place] (1.008-1.030) Urine Protein (NEGATIVE) mg/dL Urine Glucose (UA) (NEGATIVE) mg/dL Urine Ketones (NEGATIVE) mg/dL Urine Occult Blood (NEGATIVE) Urine Nitrite (NEGAITVE) Urine Bilirubin (NEGATIVE) Urine Urobilinogen (NORMAL) mg/dL Ur Leukocyte Esterase (NEGATIVE) Urine RBC (0-5) Urine WBC (0-5) Ur Epithelial Cells Amorphous Sediment Urine Bacteria Urine Mucus 03/20/19 03/20/19 Range/Units 02:00 04:05 WBC (4.5-11.0) K/uL RBC (4.30-5.90) M/uL Hgb (12.0-15.0) g/dL Hct (40.0-54.0) % MCV (80-98) fL MCH (27-31) pg MCHC (32-36) % Plt Count (150-400) K/uL Neut % (Auto) (36-66) % Lymph % (Auto) (24-44) % [place] % (Auto) (2-6) % Eos % (Auto) (2-4) % Baso % (Auto) (0-1) % Sodium (140-148) mmol/L Potassium (3.6-5.2) mmol/L Chloride (100-108) mmol/L Carbon Dioxide (21-32) mmol/L Anion Gap (5.0-14.0) mmol/L BUN (7-18) mg/dL Creatinine (0.8-1.3) mg/dL Est Cr Clr Drug Dosing mL/min Estimated GFR (MDRD) (>60) Glucose (74-106) mg/dL Lactic Acid (0.4-2.0) mmol/L Calcium (8.5-10.1) mg/dL Total Bilirubin (0.2-1.0) mg/dL AST (15-37) U/L ALT (12-78) U/L Alkaline Phosphatase (46-116) U/L C-Reactive Protein (0.0-0.3) mg/dL Total Protein (6.4-8.2) g/dL Albumin (3.4-5.0) g/dL Globulin (2.3-3.5) g/dL Albumin/Globulin Ratio (1.2-2.2) Procalcitonin 0.18 ng/mL Urine Color Yellow Urine Appearance Clear Urine pH 5.0 (4.5-8.0) Ur Specific [place] 1.010 (1.008-1.030) Urine Protein Negative (NEGATIVE) mg/dL Urine Glucose (UA) Normal (NEGATIVE) mg/dL Urine Ketones Negative (NEGATIVE) mg/dL Urine Occult Blood Negative (NEGATIVE) Urine Nitrite Negative (NEGAITVE) Urine Bilirubin Negative (NEGATIVE) Urine Urobilinogen Normal (NORMAL) mg/dL Ur Leukocyte Esterase Negative (NEGATIVE) Urine RBC 0-5 (0-5) Urine WBC 0-5 (0-5) Ur Epithelial Cells Not seen Amorphous Sediment Few Urine Bacteria Not seen Urine Mucus Not seen Med Orders - Current: Current Medications Acetaminophen (Tylenol) 650 mg PO Q4H PRN PRN Reason: Pain (Mild 1-3)/fever Last Admin: 03/20/19 08:05 Dose: 650 mg Albuterol (Proventil Neb Soln) 2.5 mg NEB Q4H PRN PRN Reason: Shortness Of Breath/wheezing Albuterol/Ipratropium (Duoneb 3.0-0.5 Mg/3 Ml) 3 ml NEB QID PRN PRN Reason: Shortness Of Breath/wheezing Enoxaparin Sodium (Lovenox) 40 mg SUBCUT DAILY [facility] Last Admin: 03/20/19 09:36 Dose: 40 mg Finasteride (Proscar) 5 mg PO DAILY [facility] Last Admin: 03/20/19 09:35 Dose: 5 mg Hydrocortisone (Cortef) 5 mg PO PCDINNER [facility] Hydrocortisone (Cortef) 12.5 mg PO PCBREAKFAST [facility] Last Admin: 03/20/19 09:36 Dose: 12.5 mg Piperacillin/Tazobactam/ (Dextrose 4.5 gm/ Premix) 100 mls @ 200 mls/hr IV Q6H [place]DAR Last Admin: 03/20/19 09:36 Dose: 200 mls/hr Sodium Chloride (Normal Saline) 1,000 mls @ 125 mls/hr IV ASDIRECTED [facility] Last Admin: 03/20/19 08:06 Dose: 125 mls/hr Levofloxacin/Dextrose 750 mg/ (Premix) 150 mls @ 100 mls/hr IV Q48H [facility] Ibuprofen (Motrin) 800 mg PO Q6H PRN PRN Reason: Pain (mild 1-3) Levothyroxine Sodium (Levothyroxine) 112 mcg PO ACBREAKFAST [facility] Last Admin: 03/20/19 09:35 Dose: 112 mcg Lorazepam (Ativan) 1 mg IV Q6H PRN PRN Reason: Nausea/Vomiting Melatonin (Melatonin) 3 mg PO BEDTIME [facility] Morphine Sulfate (Morphine) 2 mg IVPUSH Q2H PRN PRN Reason: Pain (severe 7-10) Nebivolol (Bystolic) 2.5 mg PO DAILY [facility] (Desmopressin [ Desmopressin 0.1% Nasal [place]] 500 Mcg ) 0 mcg ZANE BID [facility] Last Admin: 03/20/19 09:37 Dose: 10 mcg Non-Formulary Medication (Testosterone [Testosterone]) 75 gm TOP DAILY [facility] Ondansetron HCl (Zofran Odt) 4 mg PO Q6H PRN PRN Reason: Nausea able to take PO Oxycodone HCl (Oxycodone) 5 mg PO Q4H PRN PRN Reason: Pain (moderate 4-6) Pantoprazole Sodium (Protonix) 40 mg PO DAILY [facility] Last Admin: 03/20/19 09:36 Dose: 40 mg Ramipril (Altace) 10 mg PO DAILY [facility] Rosuvastatin Calcium (Crestor) 20 mg PO BEDTIME [facility] Tamsulosin HCl (Flomax) 0.4 mg PO BEDTIME [facility] Zolpidem Tartrate (Ambien) 5 mg PO BEDTIME [facility] Discontinued Medications Fentanyl (Sublimaze) 50 mcg IVPUSH ONETIME ONE Stop: 03/20/19 04:50 Last Admin: 03/20/19 04:57 Dose: 50 mcg Lactated Ringer's (Ringers, Lactated) 1,000 mls @ 999 mls/hr IV ASDIRECTED [facility] Last Admin: 03/20/19 02:13 Dose: 999 mls/hr Piperacillin Sod/Tazobactam (Sod 4.5 gm/ Sodium Chloride) 100 mls @ 200 mls/hr IV Q6H [facility] Last Admin: 03/20/19 03:14 Dose: Not Given Piperacillin Sod/Tazobactam (Sod 4.5 gm/ Sodium Chloride) 100 mls @ 100 mls/hr IV ONETIME ONE Stop: 03/20/19 03:06 Last Admin: 03/20/19 02:40 Dose: 100 mls/hr Lactated Ringer's (Ringers, Lactated) 1,000 mls @ 999 mls/hr IV ASDIRECTED [facility] Last Admin: 03/20/19 03:42 Dose: 999 mls/hr Sodium Chloride (Normal Saline) 1,000 mls @ 200 mls/hr IV ASDIRECTED [facility] Last Admin: 03/20/19 06:42 Dose: 200 mls/hr Sodium Chloride (Normal Saline) 500 mls @ 999 mls/hr IV ASDIRECTED [facility] Stop: 03/20/19 08:31 Ibuprofen (Motrin) 600 mg PO ONETIME ONE Stop: 03/20/19 02:03 Last Admin: 03/20/19 02:08 Dose: 600 mg Ondansetron HCl (Zofran) 4 mg IVPUSH ONETIME ONE Stop: 03/20/19 02:29 Last Admin: 03/20/19 02:33 Dose: 4 mg Sodium Chloride (Saline Flush) 10 ml FLUSH ASDIRECTED PRN PRN Reason: Keep Vein Open Last Admin: 03/20/19 02:14 Dose: 10 ml Sodium Chloride (Saline Flush) 10 ml FLUSH ASDIRECTED PRN PRN Reason: Keep Vein Open Last Admin: 03/20/19 02:35 Dose: 10 ml - Exam Quality Assessment: Supplemental Oxygen General: Alert, Oriented, Cooperative, No Acute Distress Lungs: Normal Respiratory Effort, Crackles (left lung base). No: Wheezing Cardiovascular: Regular Rate, Regular Rhythm GI/Abdominal Exam: Soft, No Distention Extremities: No Pedal Edema. No: Increased Warmth Psy/Mental Status: Alert, Normal Affect - Problem List Review Problem List Initiated/Reviewed/Updated: Yes - My Orders Last 24 Hours: My Active Orders 03/20/19 08:00 Sodium Chloride 0.9% [Normal Saline] 1,000 ml IV ASDIRECTED 03/20/19 08:51 Isolation [COMM] Stat 03/20/19 08:53 CLOSTRIDIUM DIFFICILE BY PCR [RM] Routine 03/20/19 10:00 Levofloxacin/Dextrose 5%-Water [Levaquin in D5W 750 MG/150 ML] 750 mg Premix Bag 1 bag IV Q48H 03/21/19 05:00 BASIC METABOLIC PANEL,BMP [CHEM] Timed CBC W/O DIFF,HEMOGRAM [HEME] Timed (1) - Plan Plan:: ASSESSMENT AND PLAN OF CARE Left lower lobe Pneumonia - still on supplemental oxygen. Temperature curve is better. Shortness of breath is better. -Continue IV fluids -Continue Pip/Tazo -oxygen to keep sats greater than 95% -Duo nebs every 6 hours prn, Albuterol nebs every 4 hours prn -Follow-up blood cultures Acute kidney injury - creatinine of 1.8, baseline unknown but I suspect this is twice what is normal creatinine level is. -IV fluids as above and repeat labs in the morning Hx of Pituatary Tumor, with resection x 3, Diabetes Insipidus - which light stable at this time. -continue home medications -has Desmopressin nasal spray 1 spray bid, patient has his own, must be kept in refrigerated -blood glucose check Maintenance issues -Nutrition: regular diet -Espinoza catheter -not indicated at this time -DVT: Lovenox 40 subcut daily -GI; PO Protonix 40mg daily Disposition: home with Family Primary care provider: Bud Sanchez MD
[2019-03-20] MEDS ORDERED: Levofloxacin/Dextrose 5%-Water 750 MG in Premix Bag 1 BAG IV SCH (11:00)
[2019-03-20] MEDS: Lactobacillus Rhamnosus GG (Probiotic) Cap PO SCH ×2 (12:06→21:20)
[2019-03-20] MEDS: Ibuprofen 800 MG Tab PO PRN (12:24)
[2019-03-20] MEDS: Ondansetron 4 MG Tab.DIS PO PRN (16:27)
[2019-03-20] MEDS: TESTOSTERONE 1.62% TOP SCH (16:39)
[2019-03-20] MEDS: Melatonin 3 MG Tab PO SCH (21:20)
[2019-03-20] MEDS: Rosuvastatin 10 MG Tab PO SCH (21:21)
[2019-03-20] MEDS: Tamsulosin 0.4 MG Cap.ER PO SCH (21:22)
[2019-03-20] MEDS: Zolpidem 5 MG Tab PO SCH (21:23)
[2019-03-21] MEDS: Piperacillin/Tazobactam/Dext 4.5 GM in Premix Bag 1 BAG IV SCH ×2 (02:32→09:33)
[2019-03-21] MEDS: Sodium Chloride 0.9% 1,000 ML IV SCH (02:32)
[2019-03-21] MEDS: Levothyroxine 112 MCG Tab PO SCH (07:39)
[2019-03-21] MEDS: Acetaminophen 325 MG Tab PO PRN (07:39)
[2019-03-21] MEDS: Ondansetron 4 MG Tab.DIS PO PRN ×2 (08:07→17:17)
[2019-03-21] MEDS: Ibuprofen 800 MG Tab PO PRN (08:09)
[2019-03-21] MEDS: Lactobacillus Rhamnosus GG (Probiotic) Cap PO SCH ×2 (08:13→21:12)
[2019-03-21] MEDS: Pantoprazole 40 MG Tab.CR PO SCH (08:14)
[2019-03-21] MEDS: Enoxaparin 40 MG/0.4 ML Syringe SUBCUT SCH (08:14)
[2019-03-21] MEDS: Finasteride 5 MG Tab PO SCH (08:14)
[2019-03-21] MEDS: TESTOSTERONE 1.62% TOP SCH (08:15)
[2019-03-21] MEDS: DESMOPRESSIN NAS SCH ×2 (08:19→21:17)
[2019-03-21] MEDS ORDERED: LORazepam 2 MG/ML SDV IVPUSH PRN (10:07)
[2019-03-21] MEDS ORDERED: Sodium Chloride 0.9% 1,000 ML IV SCH (11:37)
--- NOTE | 2019-03-21 11:38 | PCM.PN ---
- General Info Date of Service: 03/21/19 Subjective Update: There were no acute events overnight and the patient reports he rested well. This morning after breakfast he developed nausea and did vomit. Headache did resolve yesterday but is back today. He does not feel significantly short of breath. He is not coughing much. Does continue to have diarrhea. Not much of an appetite. Blood pressure has improved. Functional Status: Reports: Pain Controlled - Review of Systems General: Denies: Fever Gastrointestinal: Reports: Diarrhea, Vomiting - Patient Data Vitals - Most Recent: Last Vital Signs Temp 36.6 C 03/21/19 07:30 Pulse 60 03/21/19 08:12 Resp 16 03/21/19 07:30 BP 128/77 03/21/19 10:24 Pulse Ox 96 03/21/19 07:30 Weight - Most Recent: 95.254 kg I&O - Last 24 Hours: Intake & Output 03/20/19 03/21/19 03/21/19 22:59 06:59 14:59 Intake Total 1698 1240 300 Output Total 50 Balance 1698 1240 250 Lab Results Last 24 Hours: Laboratory Results - last 24 hr 03/21/19 03/21/19 Range/Units 05:42 05:42 WBC 2.6 L (4.5-11.0) K/uL RBC 4.55 (4.30-5.90) M/uL Hgb 12.5 D (12.0-15.0) g/dL Hct 37.4 L (40.0-54.0) % MCV 82 (80-98) fL MCH 28 (27-31) pg MCHC 33 (32-36) % Plt Count 81 L (150-400) K/uL Sodium 132 L (140-148) mmol/L Potassium 3.8 (3.6-5.2) mmol/L Chloride 100 (100-108) mmol/L Carbon Dioxide 23 (21-32) mmol/L Anion Gap 12.8 (5.0-14.0) mmol/L BUN 12 (7-18) mg/dL Creatinine 1.0 (0.8-1.3) mg/dL Est Cr Clr Drug Dosing 72.35 mL/min Estimated GFR (MDRD) > 60 (>60) Glucose 94 (74-106) mg/dL Calcium 7.7 L D (8.5-10.1) mg/dL Kenneth Results Last 24 Hours: Microbiology 03/20/19 01:45 Aerobic Blood Culture - Preliminary Blood - Venous - Lab Draw NO GROWTH AFTER 1 DAY Anaerobic Blood Culture - Preliminary NO GROWTH AFTER 1 DAY 03/20/19 02:00 Aerobic Blood Culture - Preliminary Blood - Venous NO GROWTH AFTER 1 DAY Anaerobic Blood Culture - Preliminary NO GROWTH AFTER 1 DAY 03/20/19 08:53 Clostridioides difficile (PCR) - Final Stool / Feces NEGATIVE CDIFF TOXIN Med Orders - Current: Current Medications Acetaminophen (Tylenol) 650 mg PO Q4H PRN PRN Reason: Pain (Mild 1-3)/fever Last Admin: 03/21/19 07:39 Dose: 650 mg Albuterol (Proventil Neb Soln) 2.5 mg NEB Q4H PRN PRN Reason: Shortness Of Breath/wheezing Albuterol/Ipratropium (Duoneb 3.0-0.5 Mg/3 Ml) 3 ml NEB QID PRN PRN Reason: Shortness Of Breath/wheezing Finasteride (Proscar) 5 mg PO DAILY [facility] Last Admin: 03/21/19 08:14 Dose: 5 mg Hydrocortisone (Cortef) 5 mg PO PCDINNER [facility] Last Admin: 03/20/19 18:21 Dose: 5 mg Hydrocortisone (Cortef) 12.5 mg PO PCBREAKFAST [facility] Last Admin: 03/21/19 08:10 Dose: 12.5 mg Levofloxacin/Dextrose 750 mg/ (Premix) 150 mls @ 100 mls/hr IV Q24H [facility] Sodium Chloride (Normal Saline) 1,000 mls @ 50 mls/hr IV ASDIRECTED [facility] Ibuprofen (Motrin) 800 mg PO Q6H PRN PRN Reason: Pain (mild 1-3) Last Admin: 03/21/19 08:09 Dose: 800 mg Lactobacillus Rhamnosus (Culturelle) 1 cap PO BID [facility] Last Admin: 03/21/19 08:13 Dose: 1 cap Levothyroxine Sodium (Levothyroxine) 112 mcg PO ACBREAKFAST [facility] Last Admin: 03/21/19 07:39 Dose: 112 mcg Lorazepam (Ativan) 0.5 mg IVPUSH Q4H PRN PRN Reason: Nausea/Vomiting Melatonin (Melatonin) 3 mg PO BEDTIME [facility] Last Admin: 03/20/19 21:20 Dose: 3 mg Morphine Sulfate (Morphine) 2 mg IVPUSH Q2H PRN PRN Reason: Pain (severe 7-10) (Desmopressin [ Desmopressin 0.1% Nasal [place]] 500 Mcg ) 0 mcg ZANE BID [facility] Last Admin: 03/21/19 08:19 Dose: 1 mcg Ondansetron HCl (Zofran Odt) 4 mg PO Q6H PRN PRN Reason: Nausea able to take PO Last Admin: 03/21/19 08:07 Dose: 4 mg Oxycodone HCl (Oxycodone) 5 mg PO Q4H PRN PRN Reason: Pain (moderate 4-6) Pantoprazole Sodium (Protonix) 40 mg PO DAILY [facility] Last Admin: 03/21/19 08:14 Dose: 40 mg Testosterone 1.62% (Gel 2.5gm PktPom) 0 each TOP DAILY [facility] Last Admin: 03/21/19 08:15 Dose: 1 each Ramipril (Altace) 10 mg PO DAILY [facility] Last Admin: 03/21/19 08:11 Dose: 10 mg Rosuvastatin Calcium (Crestor) 20 mg PO BEDTIME [facility] Last Admin: 03/20/19 21:21 Dose: 20 mg Tamsulosin HCl (Flomax) 0.4 mg PO BEDTIME [facility] Last Admin: 03/20/19 21:22 Dose: 0.4 mg Zolpidem Tartrate (Ambien) 5 mg PO BEDTIME [facility] Last Admin: 03/20/19 21:23 Dose: Not Given Discontinued Medications Enoxaparin Sodium (Lovenox) 40 mg SUBCUT DAILY [facility] Last Admin: 03/21/19 08:14 Dose: 40 mg Fentanyl (Sublimaze) 50 mcg IVPUSH ONETIME ONE Stop: 03/20/19 04:50 Last Admin: 03/20/19 04:57 Dose: 50 mcg Lactated Ringer's (Ringers, Lactated) 1,000 mls @ 999 mls/hr IV ASDIRECTED [facility] Last Admin: 03/20/19 02:13 Dose: 999 mls/hr Piperacillin Sod/Tazobactam (Sod 4.5 gm/ Sodium Chloride) 100 mls @ 200 mls/hr IV Q6H [facility] Last Admin: 03/20/19 03:14 Dose: Not Given Piperacillin Sod/Tazobactam (Sod 4.5 gm/ Sodium Chloride) 100 mls @ 100 mls/hr IV ONETIME ONE Stop: 03/20/19 03:06 Last Admin: 03/20/19 02:40 Dose: 100 mls/hr Lactated Ringer's (Ringers, Lactated) 1,000 mls @ 999 mls/hr IV ASDIRECTED [facility] Last Admin: 03/20/19 03:42 Dose: 999 mls/hr Sodium Chloride (Normal Saline) 1,000 mls @ 200 mls/hr IV ASDIRECTED [facility] Last Admin: 03/20/19 06:42 Dose: 200 mls/hr Piperacillin/Tazobactam/ (Dextrose 4.5 gm/ Premix) 100 mls @ 200 mls/hr IV Q6H [facility] Last Admin: 03/21/19 09:33 Dose: 200 mls/hr Sodium Chloride (Normal Saline) 500 mls @ 999 mls/hr IV ASDIRECTED [facility] Stop: 03/20/19 08:31 Sodium Chloride (Normal Saline) 1,000 mls @ 50 mls/hr IV ASDIRECTED [facility] Last Admin: 03/21/19 02:32 Dose: 125 mls/hr Levofloxacin/Dextrose 750 mg/ (Premix) 150 mls @ 100 mls/hr IV Q48H [facility] Last Admin: 03/20/19 12:05 Dose: 100 mls/hr Piperacillin/Tazobactam/ (Dextrose 3.375 gm/ Premix) 50 mls @ 100 mls/hr IV Q6H [facility] Ibuprofen (Motrin) 600 mg PO ONETIME ONE Stop: 03/20/19 02:03 Last Admin: 03/20/19 02:08 Dose: 600 mg Lorazepam (Ativan) 1 mg IV Q6H PRN PRN Reason: Nausea/Vomiting Last Admin: 03/21/19 10:23 Dose: 1 mg Nebivolol (Bystolic) 2.5 mg PO DAILY [facility] Last Admin: 03/21/19 08:12 Dose: 2.5 mg Ondansetron HCl (Zofran) 4 mg IVPUSH ONETIME ONE Stop: 03/20/19 02:29 Last Admin: 03/20/19 02:33 Dose: 4 mg Sodium Chloride (Saline Flush) 10 ml FLUSH ASDIRECTED PRN PRN Reason: Keep Vein Open Last Admin: 03/20/19 02:14 Dose: 10 ml Sodium Chloride (Saline Flush) 10 ml FLUSH ASDIRECTED PRN PRN Reason: Keep Vein Open Last Admin: 03/20/19 02:35 Dose: 10 ml - Exam Quality Assessment: No: Supplemental Oxygen General: Alert, Oriented, Cooperative, No Acute Distress Lungs: Normal Respiratory Effort, Crackles (left lung base) Cardiovascular: Regular Rate, Regular Rhythm GI/Abdominal Exam: Soft, Non-Tender, No Distention Extremities: Pedal Edema (trace bilateral ankle edema). No: Increased Warmth Skin: Warm, Dry Psy/Mental Status: Alert, Normal Affect - Problem List Review Problem List Initiated/Reviewed/Updated: Yes - My Orders Last 24 Hours: My Active Orders 03/21/19 10:07 LORazepam [Ativan] 0.5 mg IVPUSH Q4H PRN 03/21/19 11:37 Sodium Chloride 0.9% [Normal Saline] 1,000 ml IV ASDIRECTED 03/21/19 12:00 Levofloxacin/Dextrose 5%-Water [Levaquin in D5W 750 MG/150 ML] 750 mg Premix Bag 1 bag IV Q24H 03/22/19 05:00 BASIC METABOLIC PANEL,BMP [CHEM] Timed CBC W/O DIFF,HEMOGRAM [HEME] Timed (1) - Plan Plan:: ASSESSMENT AND PLAN OF CARE Left lower lobe Pneumonia - off supplemental oxygen. No fevers overnight. I suspect the nausea, vomiting and diarrhea are part of the pneumonia syndrome. Clostridium difficile testing was negative. -Gentle IV fluids -Continue levofloxacin -discontinue Pip/Tazo -oxygen to keep sats greater than 95% -Duo nebs every 6 hours prn, Albuterol nebs every 4 hours prn -Follow-up blood cultures Acute kidney injury - creatinine has normalized with hydration. -IV fluids as above and repeat labs in the morning Hx of Pituatary Tumor, with resection x 3, Diabetes Insipidus - electrolytes are acceptable at this time. -continue home medications -has Desmopressin nasal spray 1 spray bid, patient has his own, must be kept in refrigerated -blood glucose check Maintenance issues -Nutrition: regular diet -Espinoza catheter -not indicated at this time -DVT: Lovenox 40 subcut daily -GI; PO Protonix 40mg daily Disposition: home with Family Primary care provider: Bud Sanchez MD
[2019-03-21] MEDS ORDERED: Levofloxacin/Dextrose 5%-Water 750 MG in Premix Bag 1 BAG IV SCH (12:00)
[2019-03-21] MEDS: Loperamide 2 MG Cap PO PRN ×2 (14:44→20:08)
[2019-03-21] MEDS ORDERED: Piperacillin/Tazobactam/Dext 3.375 GM in Premix Bag 1 BAG IV SCH (15:00)
[2019-03-21] MEDS: Zolpidem 5 MG Tab PO SCH (21:11)
[2019-03-21] MEDS: Rosuvastatin 10 MG Tab PO SCH (21:12)
[2019-03-21] MEDS: Melatonin 3 MG Tab PO SCH (21:13)
[2019-03-21] MEDS: Tamsulosin 0.4 MG Cap.ER PO SCH (21:13)
[2019-03-22] MEDS: Levothyroxine 112 MCG Tab PO SCH (08:23)
[2019-03-22] MEDS: Lactobacillus Rhamnosus GG (Probiotic) Cap PO SCH (08:24)
[2019-03-22] MEDS: DESMOPRESSIN NAS SCH (08:26)
[2019-03-22] MEDS: Finasteride 5 MG Tab PO SCH (08:26)
[2019-03-22] MEDS: Pantoprazole 40 MG Tab.CR PO SCH (08:26)
[2019-03-22] MEDS: TESTOSTERONE 1.62% TOP SCH (08:26)
--- NOTE | 2019-03-22 09:33 | PCM.DCSUM1 ---
Discharge Summary - Hospital Course Brief History: 59 -year-old male with history of diabetes insipidus secondary to resection of a pituitary tumor and essential hypertension who presented with weakness, fever, chills and confusion. He was admitted for management of a left lower lobe pneumonia with sepsis syndrome and acute kidney injury. Diagnosis: Stroke: No - Discharge Data Discharge Date: 03/22/19 Discharge Disposition: Home, Self-Care 01 Condition: Good - Discharge Diagnosis/Problem(s) (1) Community acquired pneumonia SNOMED Code(s): 101197940 ICD Code: J18.9 - PNEUMONIA, UNSPECIFIED ORGANISM Status: Acute Priority : High Current Visit: Yes Qualifiers: Laterality: left Lung location: lower lobe of lung Qualified Code(s): J18.1 - Lobar pneumonia, unspecified organism (2) Sepsis SNOMED Code(s): 17986786 ICD Code: A41.9 - SEPSIS, UNSPECIFIED ORGANISM Status: Acute Current Visit: Yes Qualifiers: Sepsis type: sepsis due to unspecified organism Qualified Code(s): A41.9 - Sepsis, unspecified organism (3) Acute respiratory failure with hypoxia SNOMED Code(s): 88576069, 738626230 ICD Code: J96.01 - ACUTE RESPIRATORY FAILURE WITH HYPOXIA Status: Acute Current Visit: Yes (4) Acute kidney injury SNOMED Code(s): 36503778, 33009583 ICD Code: N17.9 - ACUTE KIDNEY FAILURE, UNSPECIFIED Status: Acute Current Visit: Yes (5) Diabetes insipidus SNOMED Code(s): 24174429 ICD Code: E23.2 - DIABETES INSIPIDUS Status: Chronic Priority: Medium Current Visit: Yes - Patient Summary/Data Consults: Consultations 03/20/19 07:13 Consult to Spiritual Care [CONS] Routine Hospital Course: Felix presented to the emergency room with weakness, confusion as well as fever and chills. Workup in the emergency room was suggestive of a left lower lobe pneumonia with acute respiratory failure with hypoxia as well as acute kidney injury with a creatinine of 1.8. Evidence for sepsis included the confusion, hypotension that developed very quickly after presentation to the emergency room and the acute kidney injury. He was started on Pip/Tazo in the emergency room after cultures were obtained. He received aggressive IV fluid resuscitation at the time of presentation. He was admitted to the hospital for further management. By the morning after admission he is feeling a little bit better. Evidence for sepsis has started to stabilize with improvement in his blood pressure. Confusion seemed to have resolved. He did have a headache which was thought to be part of the infection syndrome. A head CT was obtained and was negative. The morning after admission his white blood cell count and platelets both dropped to below normal. There is no evidence for bleeding. Levofloxacin was added to the antibiotic regimen. He did have a fair amount of diarrhea and we did perform Clostridium difficile testing which was negative. I suspect the diarrhea and vomiting or part of the pneumonia syndrome as well. As the day after admission progressed he was starting to feel better and we were able to wean off the supplemental oxygen. He did have some mild nausea but in general was feeling better. By the second morning of admission his vital signs have improved. Unfortunately he did have an episode of nausea with vomiting and had very poor oral intake during that first part of the day. With additional symptomatic management we are able to resolve the nausea. I did stop the Pip/ Tazo at this point and continue monotherapy with his levofloxacin. His kidney function had normalized. He has not had any additional fevers throughout the course of the hospital stay. Nausea is much better on the day of discharge. He has not had any fevers and more than 24 hours. Cultures have all been negative. His platelets and white blood cell count remains low but have improved compared to yesterday. I believe he is safe for discharge home at this time. He will need 6 additional doses of antibiotic therapy with levofloxacin. He will follow- up if symptoms do not continue to get better or if they get worse. - Patient Instructions Diet: Regular Diet as Tolerated Activity: As Tolerated Showering/Bathing: May Shower Notify Provider of: Fever, Increased Pain, Nausea and/or Vomiting Other/Special Instructions: 1. You were in the hospital for management of community-acquired pneumonia involving the left lower lobe of your lung. Your condition has been improving with antibiotic therapy. I recommend 6 additional doses of antibiotics. Please take levofloxacin 750 mg once daily around lunchtime. Urinary dose is due this afternoon. You may use the lorazepam (Ativan ) every 4 hours as needed for nausea. You may use Imodium every 4 hours as needed for diarrhea (this is available [id number] 2. Continue your other home medications as previously prescribed. 3. Follow up with your primary care after you get home if your symptoms do not continue to get better or if they get worse. 4. Seek medical attention immediately if you develop fever greater than 101, severe shortness of breath or if you have persistent vomiting or severe diarrhea. - Discharge Plan *PRESCRIPTION DRUG MONITORING PROGRAM REVIEWED*: Not Applicable *COPY OF PRESCRIPTION DRUG MONITORING REPORT IN PATIENT DOMINIC: Not Applicable Prescriptions/Med Rec: Levofloxacin 750 mg PO WITHLUNCH #6 tablet LORazepam 0.5 mg PO Q4H PRN #10 tab PRN Reason: Nausea Home Medications: Home Meds Desmopressin [Desmopressin 0.1% Nasal [place]] 500 mcg INH BID 03/20/19 [History] Docusate Sodium 100 mg PO DAILY 03/20/19 [History] Finasteride [Proscar] 5 mg PO DAILY 03/20/19 [History] Hydrocortisone [Cortef] 5 mg PO PCDINNER 03/20/19 [History] Hydrocortisone [Cortef] 12.5 mg PO PCBREAKFAST 03/20/19 [History] Levothyroxine 112 mcg PO ACBREAKFAST 03/20/19 [History] Melatonin/Herbal Complex #184 [Melatonin + l-Theanine Softgel] 3 mg PO BEDTIME 03/20/19 [History] Nebivolol HCl [Bystolic] 2.5 mg PO DAILY 03/20/19 [History] Ramipril [Altace] 10 mg PO DAILY 03/20/19 [History] Rosuvastatin [Crestor] 20 mg PO BEDTIME 03/20/19 [History] Tamsulosin HCl [Flomax] 0.4 mg PO BEDTIME 03/20/19 [History] Testosterone 75 gm TOP DAILY 03/20/19 [History] Zolpidem Tartrate [Ambien] 5 mg PO BEDTIME 03/20/19 [History] LORazepam 0.5 mg PO Q4H PRN #10 tab 03/21/19 [Rx] Levofloxacin 750 mg PO WITHLUNCH #6 tablet 03/21/19 [Rx] Oxygen Therapy Mode: Room Air Patient Handouts: Community-Acquired Pneumonia, Adult, Levofloxacin tablets Referrals: PCP,None [Primary Care Provider] - (Follow-up with your primary care as needed after the hospital stay) - Discharge Summary/Plan Comment DC Time >30 min.: No - Patient Data Vitals - Most Recent: Last Vital Signs Temp 37.3 C 03/22/19 07:19 Pulse 57 L 03/22/19 07:19 Resp 16 03/22/19 07:19 BP 147/66 H 03/22/19 08:23 Pulse Ox 94 L 03/22/19 07:19 Weight - Most Recent: 95.254 kg I&O - Last 24 hours: Intake & Output 03/21/19 03/22/19 03/22/19 22:59 06:59 14:59 Intake Total 2486 868 Balance 2486 868 Lab Results - Last 24 hrs: Laboratory Results - last 24 hr 03/22/19 03/22/19 Range/Units 06:08 06:08 WBC 3.1 L (4.5-11.0) K/uL RBC 4.57 (4.30-5.90) M/uL Hgb 12.4 (12.0-15.0) g/dL Hct 36.5 L (40.0-54.0) % MCV 80 (80-98) fL MCH 27 (27-31) pg MCHC 34 (32-36) % Plt Count 99 L (150-400) K/uL Sodium 125 L (140-148) mmol/L Potassium 3.9 (3.6-5.2) mmol/L Chloride 95 L (100-108) mmol/L Carbon Dioxide 22 (21-32) mmol/L Anion Gap 11.9 (5.0-14.0) mmol/L BUN 9 (7-18) mg/dL Creatinine 0.8 (0.8-1.3) mg/dL Est Cr Clr Drug Dosing 90.43 mL/min Estimated GFR (MDRD) > 60 (>60) Glucose 79 (74-106) mg/dL Calcium 7.8 L (8.5-10.1) mg/dL MICHELLE Results - Last 24 hrs: Microbiology 03/20/19 02:00 Aerobic Blood Culture - Preliminary Blood - Venous NO GROWTH AFTER 2 DAYS Anaerobic Blood Culture - Preliminary NO GROWTH AFTER 2 DAYS 03/20/19 01:45 Aerobic Blood Culture - Preliminary Blood - Venous - Lab Draw NO GROWTH AFTER 2 DAYS Anaerobic Blood Culture - Preliminary NO GROWTH AFTER 2 DAYS Med Orders - Current: Current Medications Acetaminophen (Tylenol) 650 mg PO Q4H PRN PRN Reason: Pain (Mild 1-3)/fever Last Admin: 06/20/19 07:39 Dose: 650 mg Albuterol (Proventil Neb Soln) 2.5 mg NEB Q4H PRN PRN Reason: Shortness Of Breath/wheezing Albuterol/Ipratropium (Duoneb 3.0-0.5 Mg/3 Ml) 3 ml NEB QID PRN PRN Reason: Shortness Of Breath/wheezing Finasteride (Proscar) 5 mg PO DAILY [facility] Last Admin: 03/22/19 08:26 Dose: 5 mg Hydrocortisone (Cortef) 5 mg PO PCDINNER [facility] Last Admin: 03/21/19 17:17 Dose: 5 mg Hydrocortisone (Cortef) 12.5 mg PO PCBREAKFAST [facility] Last Admin: 03/22/19 08:25 Dose: 12.5 mg Levofloxacin/Dextrose 750 mg/ (Premix) 150 mls @ 100 mls/hr IV Q24H [facility] Last Admin: 03/21/19 13:14 Dose: 100 mls/hr Sodium Chloride (Normal Saline) 1,000 mls @ 50 mls/hr IV ASDIRECTED [facility] Ibuprofen (Motrin) 800 mg PO Q6H PRN PRN Reason: Pain (mild 1-3) Last Admin: 03/21/19 08:09 Dose: 800 mg Lactobacillus Rhamnosus (Culturelle) 1 cap PO BID [facility] Last Admin: 03/22/19 08:24 Dose: 1 cap Levothyroxine Sodium (Levothyroxine) 112 mcg PO ACBREAKFAST [facility] Last Admin: 03/22/19 08:23 Dose: 112 mcg Loperamide HCl (Imodium) 2 mg PO Q4H PRN PRN Reason: Diarrhea Last Admin: 03/21/19 20:08 Dose: 2 mg Lorazepam (Ativan) 0.5 mg IVPUSH Q4H PRN PRN Reason: Nausea/Vomiting Melatonin (Melatonin) 3 mg PO BEDTIME [facility] Last Admin: 03/21/19 21:13 Dose: 3 mg Morphine Sulfate (Morphine) 2 mg IVPUSH Q2H PRN PRN Reason: Pain (severe 7-10) (Desmopressin [ Desmopressin 0.1% Nasal [place]] 500 Mcg ) 0 mcg ZANE BID [facility] Last Admin: 03/22/19 08:26 Dose: 1 mcg Ondansetron HCl (Zofran Odt) 4 mg PO Q6H PRN PRN Reason: Nausea able to take PO Last Admin: 03/21/19 17:17 Dose: 4 mg Oxycodone HCl (Oxycodone) 5 mg PO Q4H PRN PRN Reason: Pain (moderate 4-6) Pantoprazole Sodium (Protonix) 40 mg PO DAILY [facility] Last Admin: 03/22/19 08:26 Dose: 40 mg Testosterone 1.62% (Gel 2.5gm PktPom) 0 each TOP DAILY [facility] Last Admin: 03/22/19 08:26 Dose: 1 each Ramipril (Altace) 10 mg PO DAILY [facility] Last Admin: 03/22/19 08:23 Dose: 10 mg Rosuvastatin Calcium (Crestor) 20 mg PO BEDTIME [facility] Last Admin: 03/21/19 21:12 Dose: 20 mg Tamsulosin HCl (Flomax) 0.4 mg PO BEDTIME [facility] Last Admin: 03/21/19 21:13 Dose: 0.4 mg Zolpidem Tartrate (Ambien) 5 mg PO BEDTIME [facility] Last Admin: 03/21/19 21:11 Dose: Not Given Discontinued Medications Enoxaparin Sodium (Lovenox) 40 mg SUBCUT DAILY [facility] Last Admin: 03/21/19 08:14 Dose: 40 mg Fentanyl (Sublimaze) 50 mcg IVPUSH ONETIME ONE Stop: 03/20/19 04:50 Last Admin: 03/20/19 04:57 Dose: 50 mcg Lactated Ringer's (Ringers, Lactated) 1,000 mls @ 999 mls/hr IV ASDIRECTED [facility] Last Admin: 03/20/19 02:13 Dose: 999 mls/hr Piperacillin Sod/Tazobactam (Sod 4.5 gm/ Sodium Chloride) 100 mls @ 200 mls/hr IV Q6H [facility] Last Admin: 03/20/19 03:14 Dose: Not Given Piperacillin Sod/Tazobactam (Sod 4.5 gm/ Sodium Chloride) 100 mls @ 100 mls/hr IV ONETIME ONE Stop: 03/20/19 03:06 Last Admin: 03/20/19 02:40 Dose: 100 mls/hr Lactated Ringer's (Ringers, Lactated) 1,000 mls @ 999 mls/hr IV ASDIRECTED [facility] Last Admin: 03/20/19 03:42 Dose: 999 mls/hr Sodium Chloride (Normal Saline) 1,000 mls @ 200 mls/hr IV ASDIRECTED [facility] Last Admin: 03/20/19 06:42 Dose: 200 mls/hr Piperacillin/Tazobactam/ (Dextrose 4.5 gm/ Premix) 100 mls @ 200 mls/hr IV Q6H [facility] Last Admin: 03/21/19 09:33 Dose: 200 mls/hr Sodium Chloride (Normal Saline) 500 mls @ 999 mls/hr IV ASDIRECTED [facility] Stop: 03/20/19 08:31 Sodium Chloride (Normal Saline) 1,000 mls @ 50 mls/hr IV ASDIRECTED [facility] Last Admin: 03/21/19 02:32 Dose: 125 mls/hr Levofloxacin/Dextrose 750 mg/ (Premix) 150 mls @ 100 mls/hr IV Q48H [facility] Last Admin: 03/20/19 12:05 Dose: 100 mls/hr Piperacillin/Tazobactam/ (Dextrose 3.375 gm/ Premix) 50 mls @ 100 mls/hr IV Q6H [facility] Ibuprofen (Motrin) 600 mg PO ONETIME ONE Stop: 03/20/19 02:03 Last Admin: 03/20/19 02:08 Dose: 600 mg Lorazepam (Ativan) 1 mg IV Q6H PRN PRN Reason: Nausea/Vomiting Last Admin: 03/21/19 10:23 Dose: 1 mg Nebivolol (Bystolic) 2.5 mg PO DAILY [facility] Last Admin: 03/21/19 08:12 Dose: 2.5 mg Ondansetron HCl (Zofran) 4 mg IVPUSH ONETIME ONE Stop: 03/20/19 02:29 Last Admin: 03/20/19 02:33 Dose: 4 mg Sodium Chloride (Saline Flush) 10 ml FLUSH ASDIRECTED PRN PRN Reason: Keep Vein Open Last Admin: 03/20/19 02:14 Dose: 10 ml Sodium Chloride (Saline Flush) 10 ml FLUSH ASDIRECTED PRN PRN Reason: Keep Vein Open Last Admin: 03/20/19 02:35 Dose: 10 ml - Exam Quality Assessment: Denies: Supplemental Oxygen General: Reports: Alert, Oriented, Cooperative, No Acute Distress Lungs: Reports: Normal Respiratory Effort GI/Abdominal Exam: Soft, No Distention Extremities: No Pedal Edema Psy/Mental Status: Reports: Alert, Normal Affect
== END 2019-03-22 10:00 | disposition home or self-care (01) | DRG 720 ==
LOC: JP.ED 01:27 → JP.2SS 05:48
PROVIDERS: ADMIT Internal Medicine; ATTEND Internal Medicine
DX: A41.9 Sepsis, unspecified organism (principal); J18.1 Lobar pneumonia, unspecified organism; R65.20 Severe sepsis without septic shock; N17.9 Acute kidney failure, unspecified; I10 Essential (primary) hypertension; R41.0 Disorientation, unspecified; E23.2 Diabetes insipidus; E78.00 Pure hypercholesterolemia, unspecified; J96.01 Acute respiratory failure with hypoxia; R11.2 Nausea with vomiting, unspecified; R19.7 Diarrhea, unspecified; R51 Headache; Z87.898 Personal history of other specified conditions
CPT/HCPCS: 36415; 70450; 71046; 80048; 80053; 81001; 83605; 84145; 85025; 85027; 86140; 87040; 87493; 94762; 96361; 96365; 96375; 99285-25; A9270-GY; J1650; J1956; J2060; J2405; J2543; J3010; J7030; J7120